=== PATIENT | male | born 1985 | race Caucasian/White ===

== ENCOUNTER 2016-11-03 19:58 | Emergency (ER) | payer BC, OTHER ==
[~2016-11-03] VITALS: Ht 177.8 cm; Wt 90.7 kg
[~2016-11-03 19:58] MED LIST: ALEVE220 MG; AMOXICILLIN500 M1 PO; AMOXICILLIN875 MG PO; ANTIVERT25 MG PO; BACTRIM DS TAB1 EACH PO; CORTISPORIN OTI10 M2 OTIC; ERYTHROMYCIN E3.5 G3 OPHTHALMIC; FLEXERIL PO; HYDROCODONE-APA1 TA1 PO; IBUPROFEN 600600 M1 PO; LISINOPRIL10 MG PO; MEDROLDOSEPACK PO; NAPROSYN500 MG PO; NICOTINE PATCH1 EAC1 TRANSDERM; NICOTINE TRANSD14 M1 TRANSDERM; NICOTINE TRANSDE7 MG TRANSDERM; NORCO 5-325 TA1 EACH PO; NORFLEX100 MG PO; PERCOCET 5-3251 EACH PO; PERCOCET 7.5-31 EACH PO; PREDNISONE 20 M20 MG PO; VISTARIL50 MG PO; WELLBUTRIN SR150 MG PO; ZOFRAN ODT4 MG PO
[2016-11-03 21:13] LABS: ABSOLUTE NEUTROPHILS 6.9 thou/uL (1.4-8.2); BASOPHILS 0.4 % (0.0-2.0); EOSINOPHILS 2.1 % (0.0-3.0); HEMATOCRIT 47.4 % (42.0-52.0); HEMOGLOBIN 16.4 gm/dL (14.0-18.0); LYMPHOCYTES 28.8 % (24.0-44.0); MCH 29.2 pg (26.0-34.0); MCHC 34.7 g/dL (28.0-37.0); MONOCYTES 5.1 % (1.0-8.0); PLATELET COUNT 204 thou/uL (150-400); POLYS 63.6 % (36.0-66.0); RBC 5.64 mil/uL (4.50-6.00); RDW 13.3 % (10.5-14.5); WBC 10.9 thou/uL (4.0-11.0)
[2016-11-03 21:16] LABS: ANION GAP 9 mmol/L (7-16); BUN 13 mg/dL (7-18); CALCIUM 8.9 mg/dL (8.5-10.1); CHLORIDE 105 mmol/L (98-107); CO2 24 mmol/L (21-32); CREATININE 0.9 mg/dL (0.6-1.3); GLUCOSE 91 mg/dL (70-99); POTASSIUM 3.9 mmol/L (3.5-5.1); SODIUM 138 mmol/L (136-145)
[2016-11-03 21:22] LABS: ALKALINE PHOSPHATASE 49 U/L (46-116); DIRECT BILIRUBIN < 0.1 mg/dL (<0.1-0.3); SGOT 35 U/L (15-37); SGPT 26 U/L (30-65); TOTAL BILIRUBIN 0.3 mg/dL (<0.1-1.0); TOTAL PROTEIN 7.1 g/dL (6.4-8.2)
[2016-11-03 21:24] LABS: MANUAL DIFF NO
[2016-11-03 21:25] LABS: URINE BILIRUBIN NEGATIVE (Negative); URINE BLOOD NEGATIVE (Negative); URINE COLOR YELLOW; URINE GLUCOSE-RANDOM* NEGATIVE (Negative); URINE KETONES TRACE (Negative); URINE LEUKOCYTES-REFLEX NEGATIVE (Negative); URINE PROTEIN (DIPSTICK) NEGATIVE (Negative); URINE SPECIFIC GRAVITY 1.025 (1.003-1.035); URINE UROBILINOGEN 0.2 E.U./dl (0.2-1.0)
[2016-11-03] MEDS ORDERED: NORCO 5-325 TA1 EACH PO (22:55)
== END 2016-11-03 23:18 | disposition home or self-care (01) ==
LOC: ER 19:58
PROVIDERS: Emergency Medicine
DX: R10.9 Unspecified abdominal pain (principal); I10 Essential (primary) hypertension; F17.210 Nicotine dependence, cigarettes, uncomplicated; Z90.49 Acquired absence of other specified parts of digestive tract; Z90.89 Acquired absence of other organs

== ENCOUNTER 2016-11-23 10:58 | Emergency (ER) | payer BC, OTHER ==
[~2016-11-23] VITALS: Ht 188 cm; Wt 102.1 kg
[2016-11-23] MEDS ORDERED: MOBIC7.5 MG PO (12:14)
== END 2016-11-23 12:51 | disposition home or self-care (01) ==
LOC: ER 10:58
DX: S93.401A Sprain of unspecified ligament of right ankle, initial encounter (principal); I10 Essential (primary) hypertension; F17.210 Nicotine dependence, cigarettes, uncomplicated; Z90.49 Acquired absence of other specified parts of digestive tract; W17.2XXA Fall into hole, initial encounter; Y93.89 Activity, other specified; Y92.89 Other specified places as the place of occurrence of the external cause; Y99.9 Unspecified external cause status

== ENCOUNTER 2017-01-31 22:01 | Emergency (ER) | payer BC, OTHER ==
[~2017-01-31] VITALS: Ht 188 cm; Wt 102.1 kg
[~2017-01-31 22:01] MED LIST changes: +MOBIC7.5 MG PO
[2017-01-31] MEDS ORDERED: ZOLOFT25 MG (22:12)
[2017-01-31] MEDS ORDERED: ASPIRIN EC325 M1 PO (22:12)
[2017-01-31 22:56] LABS: URINE BILIRUBIN NEGATIVE (Negative); URINE BLOOD NEGATIVE (Negative); URINE COLOR YELLOW; URINE GLUCOSE-RANDOM* NEGATIVE (Negative); URINE KETONES NEGATIVE (Negative); URINE LEUKOCYTES-REFLEX NEGATIVE (Negative); URINE PROTEIN (DIPSTICK) NEGATIVE (Negative); URINE SPECIFIC GRAVITY 1.025 (1.003-1.035); URINE UROBILINOGEN 0.2 E.U./dl (0.2-1.0)
[2017-01-31 23:57] LABS: ABSOLUTE NEUTROPHILS 8.6 thou/uL (1.4-8.2); BASOPHILS 0.6 % (0.0-2.0); EOSINOPHILS 2.7 % (0.0-3.0); HEMATOCRIT 46.7 % (42.0-52.0); HEMOGLOBIN 16.3 gm/dL (14.0-18.0); LYMPHOCYTES 27.7 % (24.0-44.0); MCH 29.3 pg (26.0-34.0); MCV 83.6 fL (80.0-100.0); MONOCYTES 6.6 % (1.0-8.0); PLATELET COUNT 211 thou/uL (150-400); POLYS 62.4 % (36.0-66.0); RBC 5.58 mil/uL (4.50-6.00); RDW 13.1 % (10.5-14.5); WBC 13.7 thou/uL (4.0-11.0)
[2017-02-01 00:04] LABS: MANUAL DIFF NO
[2017-02-01 00:05] LABS: CALCIUM 9.1 mg/dL (8.5-10.1); CREATININE 1.2 mg/dL (0.7-1.3); POTASSIUM 3.7 mmol/L (3.5-5.1)
[2017-02-01 00:10] LABS: ALBUMIN 3.8 g/dL (3.4-5.0); TOTAL BILIRUBIN 0.5 mg/dL (<0.1-1.0); TOTAL PROTEIN 7.2 g/dL (6.4-8.2)
[2017-02-01] MEDS ORDERED: BENTYL 20 MG TA20 M1 PO (00:36)
[2017-02-01] MEDS ORDERED: NAPROSYN500 MG PO (00:36)
== END 2017-02-01 01:03 | disposition home or self-care (01) ==
LOC: ER 22:01
PROVIDERS: Emergency Medicine
DX: M54.9 Dorsalgia, unspecified (principal); R30.0 Dysuria; I10 Essential (primary) hypertension; Z90.49 Acquired absence of other specified parts of digestive tract; Z98.890 Other specified postprocedural states; F17.210 Nicotine dependence, cigarettes, uncomplicated; F10.99 Alcohol use, unspecified with unspecified alcohol-induced disorder

== ENCOUNTER 2017-02-01 17:53 | Inpatient (IN) | payer BC, OTHER ==
[~2017-02-01] VITALS: Ht 188 cm; Wt 102.1 kg
--- NOTE | ~2017-02-01 | S ---
[facility] [place] [address] SURGICAL PATH RPT PROCEDURE Name: SUSANA BLEVINS Room #: 310-P [facility] IN M.R.#: [id number] Admission: 02/06/17 Date of : 87 Discharge: 02/06/17 Report #: [id number] Path Case #: [id number] PATHOLOGY REPORT COLLECTION DATE: 02/06/2017 RECEIVED DATE: 02/06/2017 SUBMITTING PHYS: Dr. Kashif Pollard OTHER PHYS: Dr. Alec Oh SPECIMEN(S) RECEIVED: A.Gastric bx * * * * * * * * * * * * FINAL DIAGNOSIS: "Gastric biopsy", biopsy: - Gastric mucosa with mild reactive changes, mild predominantly chronic inflammation and focal active gastritis. - Negative H. pylori immunohistochemical stain (block A1); control reacted appropriately. COMMENT: No dysplasia is seen. Clinical and endoscopic correlation is recommended. (CLW:cintia; 02/08/2017) PATHOLOGIST: Tara Alcaraz M.D. REPORT ELECTRONICALLY SIGNED BY: Tara Alcaraz M.D. DATE/TIME: 02/08/2017 13:46 * * * * * * * * * * * * GROSS PATHOLOGY: Received in formalin labeled "Susana Blevins, gastric BX," are 8 segments of dodge soft tissue measuring 2.3 x 0.2 x 0.2 cm in aggregate dimensions and ranging from 0.1 to 0.7 cm in maximum dimension. The specimen is submitted entirely in cassette A1. (MOOSE; 02/07/2017) CLINICAL HISTORY: ABD pain INITIAL CPT CODE(S): A; 61818, 65859 [facility] [address] [address] SURGICAL PATH RPT PROCEDURE Name: SUSANA BLEVINS Room #: 310-P DIS IN M.R.#: [id number] Admission: 02/06/17 Date of : 87 Discharge: 02/06/17 Report #: [id number] Path Case #: [id number] [address] [facility] , [place] [address] Technical services performed by [facility] at [address] [place] [address], [facility] [address] [address]. [facility] [place] [address] PHONE: [phone] DIRECTOR: Darion Murillo M.D. * * * END OF REPORT * * *
[~2017-02-01 17:53] MED LIST changes: +ASPIRIN EC325 M1 PO; +BENTYL 20 MG TA20 M1 PO; +ZOLOFT25 MG
[2017-02-01 17:54] VITALS: BP 154/95
[2017-02-01 18:28] LABS: URINE BILIRUBIN NEGATIVE (Negative); URINE BLOOD NEGATIVE (Negative); URINE COLOR YELLOW; URINE GLUCOSE-RANDOM* NEGATIVE (Negative); URINE KETONES NEGATIVE (Negative); URINE LEUKOCYTES-REFLEX NEGATIVE (Negative); URINE PROTEIN (DIPSTICK) NEGATIVE (Negative); URINE SPECIFIC GRAVITY 1.025 (1.003-1.035)
[2017-02-01 18:52] LABS: ABSOLUTE NEUTROPHILS 10.7 thou/uL (1.4-8.2); BASOPHILS 0.4 % (0.0-2.0); EOSINOPHILS 1.9 % (0.0-3.0); HEMATOCRIT 48.6 % (42.0-52.0); HEMOGLOBIN 16.9 gm/dL (14.0-18.0); LYMPHOCYTES 21.6 % (24.0-44.0); MCH 29.2 pg (26.0-34.0); MCHC 34.8 g/dL (28.0-37.0); MCV 83.8 fL (80.0-100.0); MONOCYTES 5.2 % (1.0-8.0); PLATELET COUNT 196 thou/uL (150-400); POLYS 70.9 % (36.0-66.0); RDW 13.4 % (10.5-14.5); WBC 15.1 thou/uL (4.0-11.0)
[2017-02-01 18:55] LABS: MANUAL DIFF NO
[2017-02-01 19:02] LABS: CALCIUM 9.4 mg/dL (8.5-10.1); CREATININE 1.1 mg/dL (0.7-1.3)
[2017-02-01 19:07] LABS: ALBUMIN 4.4 g/dL (3.4-5.0); TOTAL BILIRUBIN 0.5 mg/dL (<0.1-1.0); TOTAL PROTEIN 7.7 g/dL (6.4-8.2)
[2017-02-01 20:26] LABS: LARGE PLATELETS FEW
[2017-02-01 21:05] VITALS: BP 146/90
[2017-02-02 05:12] VITALS: BP 136/80
[2017-02-02 05:17] LABS: HEMATOCRIT 44.7 % (42.0-52.0); HEMOGLOBIN 15.2 gm/dL (14.0-18.0); MCH 28.5 pg (26.0-34.0); MCV 83.8 fL (80.0-100.0); RBC 5.33 mil/uL (4.50-6.00); RDW 13.6 % (10.5-14.5); WBC 13.1 thou/uL (4.0-11.0)
[2017-02-02 05:25] LABS: CALCIUM 8.4 mg/dL (8.5-10.1)
[2017-02-02 08:30] VITALS: BP 137/88
[2017-02-02 20:01] VITALS: BP 146/80
[2017-02-03 08:00] VITALS: BP 144/80
[2017-02-03 13:05] LABS: HEMATOCRIT 42.6 % (42.0-52.0); HEMOGLOBIN 14.9 gm/dL (14.0-18.0); MCH 29.2 pg (26.0-34.0); MCV 83.4 fL (80.0-100.0); RBC 5.11 mil/uL (4.50-6.00); RDW 13.3 % (10.5-14.5); WBC 10.7 thou/uL (4.0-11.0)
[2017-02-03 13:23] LABS: POTASSIUM 3.8 mmol/L (3.5-5.1)
[2017-02-03 13:29] LABS: CALCIUM 8.7 mg/dL (8.5-10.1)
[2017-02-03 19:47] VITALS: BP 154/92
[2017-02-04 04:18] VITALS: BP 124/77
[2017-02-04 04:53] LABS: HEMATOCRIT 45.4 % (42.0-52.0); HEMOGLOBIN 15.8 gm/dL (14.0-18.0); MCH 29.2 pg (26.0-34.0); MCHC 34.8 g/dL (28.0-37.0); MCV 83.8 fL (80.0-100.0); RBC 5.42 mil/uL (4.50-6.00); RDW 13.6 % (10.5-14.5)
[2017-02-04 05:07] LABS: CALCIUM 8.4 mg/dL (8.5-10.1)
[2017-02-04 07:48] VITALS: BP 136/74
[2017-02-04 15:47] VITALS: BP 145/88
[2017-02-04 20:20] VITALS: BP 155/109
[2017-02-05 04:30] VITALS: BP 139/78
[2017-02-05 07:05] VITALS: BP 138/90
[2017-02-05 16:38] VITALS: BP 149/93
[2017-02-05 20:00] VITALS: BP 130/70
[2017-02-06 04:00] VITALS: BP 112/71
[2017-02-06 06:33] LABS: ABSOLUTE NEUTROPHILS 5.7 thou/uL (1.4-8.2); BASOPHILS 0.4 % (0.0-2.0); EOSINOPHILS 3.7 % (0.0-3.0); HEMOGLOBIN 15.4 gm/dL (14.0-18.0); LYMPHOCYTES 31.4 % (24.0-44.0); MCH 29.3 pg (26.0-34.0); MCV 83.9 fL (80.0-100.0); MONOCYTES 5.2 % (1.0-8.0); PLATELET COUNT 183 thou/uL (150-400); POLYS 59.3 % (36.0-66.0); RBC 5.25 mil/uL (4.50-6.00); RDW 13.3 % (10.5-14.5); WBC 9.6 thou/uL (4.0-11.0)
[2017-02-06 06:45] LABS: MANUAL DIFF NO
[2017-02-06 06:54] LABS: ALBUMIN 3.6 g/dL (3.4-5.0); CALCIUM 9.2 mg/dL (8.5-10.1); CREATININE 1.1 mg/dL (0.7-1.3); MAGNESIUM 2.1 mg/dL (1.8-2.4); POTASSIUM 4.3 mmol/L (3.5-5.1); TOTAL BILIRUBIN 0.6 mg/dL (<0.1-1.0); TOTAL PROTEIN 6.9 g/dL (6.4-8.2)
[2017-02-06] MEDS ORDERED: PROTONIX40 M1 PO (17:11)
[2017-02-06] MEDS ORDERED: BENTYL 20 MG TA20 M1 PO (17:11)
[2017-02-06 17:50] VITALS: BP 145/95
[2017-02-06 18:06] VITALS: BP 145/95
== END 2017-02-06 19:00 | disposition home or self-care (01) | DRG 392 ==
LOC: ER 17:53 → 5S 19:22 → EROBS 19:22 → 3N 19:22 → 5S 20:28 → 3N 02-03 15:41
PROVIDERS: Emergency Medicine; Internal Medicine; Nurse Practitioner; Nurse Practitioner Family
PROC: 0DJD8ZZ Inspection of Lower Intestinal Tract, Via Natural or Artificial Opening Endoscopic (ICD-10-PCS; principal; 2017-02-06)
PROC: 0DB68ZX Excision of Stomach, Via Natural or Artificial Opening Endoscopic, Diagnostic (ICD-10-PCS; principal; 2017-02-06)
DX: A08.4 Viral intestinal infection, unspecified (principal); F32.9 Major depressive disorder, single episode, unspecified; D72.829 Elevated white blood cell count, unspecified; I10 Essential (primary) hypertension; F17.210 Nicotine dependence, cigarettes, uncomplicated; Z79.899 Other long term (current) drug therapy; Z90.49 Acquired absence of other specified parts of digestive tract; Z71.6 Tobacco abuse counseling
CPT/HCPCS: 10795; 62110; 62900; 70005

== ENCOUNTER 2017-03-22 19:26 | Emergency (ER) | payer BC, OTHER ==
[~2017-03-22] VITALS: Ht 188 cm; Wt 99.8 kg
[~2017-03-22 19:26] MED LIST changes: +PROTONIX40 M1 PO
[2017-03-22 19:48] LABS: URINE BILIRUBIN NEGATIVE (Negative); URINE BLOOD NEGATIVE (Negative); URINE COLOR YELLOW; URINE GLUCOSE-RANDOM* NEGATIVE (Negative); URINE KETONES NEGATIVE (Negative); URINE NITRITE NEGATIVE (Negative); URINE PROTEIN (DIPSTICK) NEGATIVE (Negative); URINE SPECIFIC GRAVITY 1.025 (1.003-1.035); URINE UROBILINOGEN 0.2 E.U./dl (0.2-1.0)
[2017-03-22 20:06] LABS: BASOPHILS 0.4 % (0.0-2.0); EOSINOPHILS 1.8 % (0.0-3.0); HEMATOCRIT 45.5 % (42.0-52.0); HEMOGLOBIN 16.1 gm/dL (14.0-18.0); LYMPHOCYTES 24.4 % (24.0-44.0); MCH 29.9 pg (26.0-34.0); MCHC 35.3 g/dL (28.0-37.0); MCV 84.6 fL (80.0-100.0); MONOCYTES 7.1 % (1.0-8.0); PLATELET COUNT 185 thou/uL (150-400); POLYS 66.3 % (36.0-66.0); RBC 5.37 mil/uL (4.50-6.00); RDW 13.3 % (10.5-14.5)
[2017-03-22 20:14] LABS: MANUAL DIFF NO
[2017-03-22 20:29] LABS: CALCIUM 8.8 mg/dL (8.5-10.1); POTASSIUM 3.5 mmol/L (3.5-5.1)
[2017-03-22 20:35] LABS: ALBUMIN 3.9 g/dL (3.4-5.0); TOTAL BILIRUBIN 0.5 mg/dL (<0.1-1.0); TOTAL PROTEIN 7.3 g/dL (6.4-8.2)
[2017-03-22] MEDS ORDERED: PROBIOTIC1 EAC1 PO (21:25)
[2017-03-22] MEDS ORDERED: PRILOSEC 20 MG20 MG PO (21:25)
[2017-03-22] MEDS ORDERED: HYDROCODONE-AP1 EAC6 PO (21:28)
== END 2017-03-22 21:39 | disposition home or self-care (01) ==
LOC: ER 19:26
PROVIDERS: Nurse Practitioner Family
DX: K29.70 Gastritis, unspecified, without bleeding (principal); I10 Essential (primary) hypertension; F17.210 Nicotine dependence, cigarettes, uncomplicated; F10.99 Alcohol use, unspecified with unspecified alcohol-induced disorder; Z90.49 Acquired absence of other specified parts of digestive tract; Z98.890 Other specified postprocedural states

== ENCOUNTER 2017-03-23 20:41 | Inpatient (IN) | payer BC, OTHER | END 2017-03-30 14:08 | disposition home or self-care (01) | DRG 694 | LOC: ER 20:41 → EROBS 21:23 → 4E 22:34 | PROC: BT1F1ZZ Fluoroscopy of Left Kidney, Ureter and Bladder using Low Osmolar Contrast (ICD-10-PCS; principal; 2017-03-23) | PROC: 0T778DZ Dilation of Left Ureter with Intraluminal Device, Via Natural or Artificial Opening Endoscopic (ICD-10-PCS; principal; 2017-03-23) | DX: N13.30 Unspecified hydronephrosis (principal); I10 Essential (primary) hypertension; D72.829 Elevated white blood cell count, unspecified; F17.210 Nicotine dependence, cigarettes, uncomplicated; Z90.49 Acquired absence of other specified parts of digestive tract; Z83.3 Family history of diabetes mellitus; Z82.49 Family history of ischemic heart disease and other diseases of the circulatory system ==

== ENCOUNTER 2017-04-13 08:15 | Inpatient (IN) | payer BC, OTHER ==
[~2017-04-13] VITALS: Ht 188 cm; Wt 98.9 kg
--- NOTE | ~2017-04-13 | CNG ---
[facility] [place] [address] CYTO-NONGYN REPORT PROCEDURE Name: SUSANA BLEVINS Room #: 302-P [facility] IN M.R.#: [id number] Admission: 04/13/17 Date of : 87 Discharge: 04/17/17 Report #: [id number] Path Case #: [id number] CYTOPATHOLOGY REPORT COLLECTION DATE: 04/16/2017 RECEIVED DATE: 04/17/2017 SUBMITTING PHYS: Dr. Isaak Amezquita OTHER PHYS: Dr. Мария Oh CLINICAL HISTORY: Left UPJ obstruction. SPECIMEN(S) RECEIVED: A.Urine, Left kidney * * * * * * * * * * * * FINAL DIAGNOSIS: A. Urine from Left kidney: - No malignant cells identified. - Reactive urothelial cells present with degenerative changes and some mild reactive atypia. PATHOLOGIST: Alley Mendoza M.D. REPORT ELECTRONICALLY SIGNED BY: Alley Mendoza M.D. DATE/TIME: 04/18/2017 14:43 * * * * * * * * * * * * GROSS PATHOLOGY: A. Urine, Left kidney: The specimen is submitted unfixed, labeled "Susana Blevins". Received by the Cytology Department is 20 mL of cloudy red fluid. One ThinPrep slide was prepared. (clt 04.17.2017) HOME MORTGAGE DISCLOSURE ACT SPECIALIST(S): DANIEL Dominguez([facility] INITIAL CPT CODE(S): A; 91276 Professional services performed by [facility] at [facility] [address], [place] [address] Technical services performed by [facility] at [address] [place] [address]., [address], [place] [address]. [facility] [address] [place] [address], [facility] [address] [place], [place] [address] [place] [address] [place] [address] CYTO-NONGYN REPORT PROCEDURE Name: SUSANA BLEVINS Room #: 302-P DIS IN M.R.#: [id number] Admission: 04/13/17 Date of : 87 Discharge: 04/17/17 Report #: [id number] Path Case #: [id number] PHONE: [phone] DIRECTOR: Darion Murillo M.D. * * * END OF REPORT * * *
--- NOTE | ~2017-04-13 | O ---
[facility] [place] [address] OPERATIVE REPORT Name: SUSANA QUINTERO Room #: 302-P ADM IN M.R.#: [id number] Admission: 04/13/17 Attend Phys: Мария Levine MD Discharge: Date of : 87 Report #: [id number] THIS REPORT FOR: //name// CC: Isaak Levine DATE OF SERVICE: 04/16/2017 PREOPERATIVE DIAGNOSIS: Left hydronephrosis. POSTOPERATIVE DIAGNOSES: Left hydronephrosis with proximal ureteral stricture, left UPJ obstruction. PROCEDURE: Cystoscopy, left retrograde pyelogram, left ureteroscopy with holmium laser incision and dilation of left ureteropelvic junction/left proximal ureteral stricture with placement of indwelling left ureteral stent. SURGEON: Isaak Amezquita MD ANESTHESIA: General. INDICATIONS: The patient is a very pleasant 31-year-old gentleman who was recently admitted with left flank pain. A stent was placed and his pain resolved completely. However, the last weekend he developed left flank pain and CT scan showed worsening hydronephrosis. He is admitted for further evaluation. Risks, benefits, complications have been discussed. Of note, urine cultures were negative. He has been treated empirically with IV antibiotics by the medical service. DESCRIPTION OF PROCEDURE: After obtaining informed consent, he was brought to the operating room. I had explained risk of failure of the procedure as well as complications requiring immediate or delayed open surgery as well as sepsis and bleeding. He understands risk for loss of the kidney, understands multiple additional procedures may be necessary. After entering the operative suite, he was prepped and general anesthetic was administered. He was prepped and draped in lithotomy position. IV antibiotics had been administered and a timeout was performed. Preliminary fluoroscopic images showed the stent to be in proper anatomical position. He was prepped and draped in lithotomy position. The 21-Sri Lankan ACMI cystoscope was introduced under direct vision. The anterior urethra was normal. Prostatic urethra was short and nonobstructive. Bladder was smooth walled. No intrinsic mucosal lesions. Trigone and ureters were normal in configuration and location. Stent was seen emanating from the left ureteral orifice. I placed a Glidewire in the left kidney alongside the stent and grasped the stent and removed it. I then placed a second wire and then a 12 x 14 35-cm access sheath in the left ureter. [facility] [address] [place] [address] OPERATIVE REPORT Name: SUSANA QUINTERO Room #: 302-P [facility] IN ..#: [id number] Admission: 04/13/17 Attend Phys: Мария Levine MD Discharge: Date of : 87 Report #: [id number] The digital ureteroscope was introduced into the ureter. Contrast was injected into the ureter, which showed what appeared to be a narrowing right at the left UPJ with dilation above this more consistent with a left UPJ obstruction. In the ureter, there was this whitish fibrotic tissue, right at the UPJ. I had obtained contrast urine from the upper tract for cytology. There was some amorphous tissue. I attempted to biopsy this, but the tissue disintegrated with any sort of motion and manipulation. I used 200 micron laser fiber to gently incise the stricture. I opened it up with a balloon dilator. There was no significant bleeding. The contrast then appeared to drain much better from the left kidney. Having opened the stricture, I then backloaded the wire through the cystoscope and placed a 6-Sri Lankan x 28 cm contour stent with the proximal curl in the left kidney and the distal curl was in the bladder. I paid careful attention to avoid creating too much trauma such that this procedure is not successful, he would potentially require ureteropelvic junction repair formally. The bladder was drained. Fluoroscopic images showed proper positioning of the stent. He was then transferred to the recovery room where he arrived in stable condition. <ELECTRONICALLY SIGNED> By: Isaak Amezquita MD 04/17/17 0805 1440 1632 Isaak Amezquita MD /nt
--- NOTE | ~2017-04-13 | H ---
[facility] [place] [address] HISTORY AND PHYSICAL Name: SUSANA QUINTERO Room #: 302-P [place] IN M.R.#: [id number] Admission: 04/13/17 Attend Phys: Мария Levine MD Discharge: Date of : 87 Report #: [id number] THIS REPORT FOR: //name// CC: Isaak Levine DATE OF SERVICE: 04/13/2017 CHIEF COMPLAINT: Left flank pain. HISTORY OF PRESENT ILLNESS: The patient is a 31-year-old man who had left ureteral stent for ureteral stricture a couple of weeks ago. The patient states that he was doing well until this morning, when he woke up with the increased left flank pain, fevers, chills, nausea and vomiting. He presented to the Emergency Room. He was found to have leukocytosis, with white count of 17,000. He was afebrile. CT scan of the abdomen showed increased left-sided hydronephrosis. Urinalysis is consistent with UTI. The patient does not have other complaints. PAST MEDICAL HISTORY: 1. Hypertension. 2. Anxiety and depression. 3. Recent left ureteral stent placement for ureteral stricture. HOME MEDICATIONS: Lisinopril 10 mg a day, omeprazole 20 mg a day, Zoloft 25 mg a day and lactobacillus once a day. FAMILY HISTORY: Reviewed and not pertinent to the patient's current condition. SOCIAL HISTORY: The patient smokes cigarettes. He reports social alcohol intake. REVIEW OF SYSTEMS: As above in HPI section, all others negative. PHYSICAL EXAMINATION: GENERAL: The patient is healthy looking young man who is in no apparent distress. VITAL SIGNS: Blood pressure is 142/87, heart rate is 72, respiration is 18 and temperature is 97.9. HEENT: Pupils are equal. Eye movements are normal. The patient has anicteric sclerae. NECK: Supple. He has no thyromegaly. JVD is not appreciated. RESPIRATORY: Chest moves symmetrically with breathing. Respiratory sounds are normal. CARDIOVASCULAR: The patient has regular rhythm and rate. He has no murmurs, gallops or rubs. [facility] [address] [place] [address] HISTORY AND PHYSICAL Name: SUSANA QUINTERO Room #: 302-P [place] IN [facility].#: [id number] Admission: 04/13/17 Attend Phys: Мария Levine MD Discharge: Date of : 87 Report #: [id number] GASTROINTESTINAL: Abdomen is soft, nondistended and nontender. The patient has left flank tenderness. Hepatomegaly or splenomegaly is not palpated. MUSCULOSKELETAL: The patient has no joint deformities. He has no edema, cyanosis or clubbing. NEUROLOGIC: The patient is alert and oriented x 3. His examination is grossly nonfocal. SKIN: Reveals no skin lesions. The patient has . LABORATORY DATA: Comprehensive metabolic profile is essentially normal. On CBC, white count is 17,000, with neutrophils 83%. Rest of the CBC is normal. Urinalysis shows bacteria. White count between 16 and 25, as well as leukocyte esterase. CT scan shows increased left-sided hydronephrosis. ASSESSMENT AND PLAN: 1. Left-sided hydronephrosis, status post left ureteral stent placement about 2 weeks ago. Urologist is consulted. Input is very much appreciated. 2. Pain, nausea and vomiting due to above. Continue p.r.n. medications. 3. Urinary tract infection, suspected pyelonephritis. The patient is already started on Rocephin. Urine and blood cultures submitted. 4. Hypertension. Acceptable control. Continue current treatment. By: 1502 1527 Мария Levine MD /nt
[~2017-04-13 08:15] MED LIST changes: +HYDROCODONE-AP1 EAC6 PO; +PRILOSEC 20 MG20 MG PO; +PROBIOTIC1 EAC1 PO; +TRANSDERM-SCO1 PATC1 TRANSDERM; -ZOLOFT25 MG; +ZOLOFT25 MG PO
[2017-04-13 08:19] VITALS: BP 146/90
[2017-04-13 08:48] LABS: HEMATOCRIT 46.3 % (42.0-52.0); MCH 29.3 pg (26.0-34.0); MCHC 34.5 g/dL (28.0-37.0); PLATELET COUNT 202 thou/uL (150-400); RBC 5.45 mil/uL (4.50-6.00); RDW 13.3 % (10.5-14.5); WBC 17.3 thou/uL (4.0-11.0)
[2017-04-13 08:52] LABS: URINE BILIRUBIN NEGATIVE (Negative); URINE BLOOD 3+ (Negative); URINE COLOR YELLOW; URINE GLUCOSE-RANDOM* NEGATIVE (Negative); URINE KETONES NEGATIVE (Negative); URINE PROTEIN (DIPSTICK) 2+ (Negative); URINE SPECIFIC GRAVITY >= 1.030 (1.003-1.035); URINE UROBILINOGEN 0.2 E.U./dl (0.2-1.0)
[2017-04-13 08:53] LABS: URINE LEUKOCYTES-REFLEX 2+ (Negative)
[2017-04-13 08:53] LABS: CALCIUM 9.8 mg/dL (8.5-10.1); CREATININE 1.2 mg/dL (0.7-1.3); POTASSIUM 3.7 mmol/L (3.5-5.1)
[2017-04-13 08:54] LABS: MANUAL DIFF YES
[2017-04-13 08:59] LABS: ALBUMIN 4.2 g/dL (3.4-5.0); TOTAL BILIRUBIN 0.7 mg/dL (<0.1-1.0); TOTAL PROTEIN 7.6 g/dL (6.4-8.2)
[2017-04-13 09:05] LABS: CASTS None Seen /LPF (None Seen); CRYSTALS None Seen /LPF (None Seen); SQUAMOUS None Seen /LPF (0-3)
[2017-04-13 09:16] LABS: ABSOLUTE NEUTROPHILS 14.4 thou/uL (1.4-8.2); ANISOCYTOSIS 1+; TOTAL CELL COUNT 100
[2017-04-13 10:07] VITALS: BP 139/84
[2017-04-13 10:20] VITALS: BP 120/86
[2017-04-13 10:30] VITALS: BP 142/87
[2017-04-13 16:00] VITALS: BP 130/83
[2017-04-13 19:40] VITALS: BP 140/83
[2017-04-14 03:55] VITALS: BP 124/91
[2017-04-14 04:49] LABS: ABSOLUTE NEUTROPHILS 6.1 thou/uL (1.4-8.2); BASOPHILS 0.4 % (0.0-2.0); EOSINOPHILS 3.3 % (0.0-3.0); HEMATOCRIT 42.7 % (42.0-52.0); HEMOGLOBIN 14.6 gm/dL (14.0-18.0); LYMPHOCYTES 30.1 % (24.0-44.0); MCH 29.7 pg (26.0-34.0); MCHC 34.2 g/dL (28.0-37.0); MCV 86.8 fL (80.0-100.0); PLATELET COUNT 194 thou/uL (150-400); POLYS 59.2 % (36.0-66.0); RBC 4.92 mil/uL (4.50-6.00); RDW 13.5 % (10.5-14.5); WBC 10.3 thou/uL (4.0-11.0)
[2017-04-14 04:57] LABS: CALCIUM 8.2 mg/dL (8.5-10.1); POTASSIUM 3.8 mmol/L (3.5-5.1)
[2017-04-14 05:57] LABS: MANUAL DIFF NO
[2017-04-14 08:00] VITALS: BP 131/87
[2017-04-14 08:09] VITALS: BP 131/87
[2017-04-14 16:00] VITALS: BP 137/91
[2017-04-14 19:08] VITALS: BP 148/83
[2017-04-15 03:30] VITALS: BP 117/71
[2017-04-15 06:54] LABS: CALCIUM 8.9 mg/dL (8.5-10.1)
[2017-04-15 07:07] VITALS: BP 139/94
[2017-04-15 15:44] VITALS: BP 145/79
[2017-04-15 19:18] VITALS: BP 143/86
[2017-04-16] VITALS (8 sets, daily range): BP systolic 119–147; BP diastolic 71–95
[2017-04-17 03:05] VITALS: BP 118/63
[2017-04-17 08:05] VITALS: BP 149/81
[2017-04-17] MEDS ORDERED: CEFPODOXIME PR200 M1 PO (13:41)
[2017-04-17] MEDS ORDERED: OXYCONTIN15 MG PO (13:41)
[2017-04-17] MEDS ORDERED: DILAUDID 2 MG TA2 MG PO (13:41)
[2017-04-17 13:48] VITALS: BP 149/81
== END 2017-04-17 17:36 | disposition home or self-care (01) | DRG 694 ==
LOC: ER 08:15 → 3N 10:02 → EROBS 10:02 → 3N 10:25
PROVIDERS: Emergency Medicine; Internal Medicine Endocrinology, Diabetes & Metabolism
PROC: 0T778DZ Dilation of Left Ureter with Intraluminal Device, Via Natural or Artificial Opening Endoscopic (ICD-10-PCS; principal; 2017-04-16)
PROC: BT1F1ZZ Fluoroscopy of Left Kidney, Ureter and Bladder using Low Osmolar Contrast (ICD-10-PCS; principal; 2017-04-16)
DX: N13.1 Hydronephrosis with ureteral stricture, not elsewhere classified (principal); N12 Tubulo-interstitial nephritis, not specified as acute or chronic; I10 Essential (primary) hypertension; F32.9 Major depressive disorder, single episode, unspecified; F17.210 Nicotine dependence, cigarettes, uncomplicated; F41.9 Anxiety disorder, unspecified; N39.0 Urinary tract infection, site not specified; D72.829 Elevated white blood cell count, unspecified; Z90.49 Acquired absence of other specified parts of digestive tract; Z79.899 Other long term (current) drug therapy; Z83.3 Family history of diabetes mellitus; Z82.49 Family history of ischemic heart disease and other diseases of the circulatory system
CPT/HCPCS: 10096; 50010; 50101; 51179; 51213; 51511; 51620; 51767; 53331; 56815; 62110; 62900; 70005

== ENCOUNTER 2017-08-27 17:09 | Emergency (ER) | payer OTHER ==
[~2017-08-27] VITALS: Ht 157.5 cm; Wt 99.8 kg
[~2017-08-27 17:09] MED LIST changes: +CEFPODOXIME PR200 M1 PO; +COMPAZINE10 MG PO; +DILAUDID 2 MG TA2 MG PO; +OXYCONTIN15 MG PO
[2017-08-27] MEDS ORDERED: VISTARIL 25 MG25 M1 (18:49)
[2017-08-27] MEDS ORDERED: HYDROCODONE-AP1 EAC6 PO (19:04)
[2017-08-27] MEDS ORDERED: CYCLOBENZAPRINE5 MG PO (19:04)
[2017-08-27] MEDS ORDERED: PREDNISONE 20 M20 M1 PO (19:04)
[2017-08-27 19:19] VITALS: BP 154/85
== END 2017-08-27 19:26 | disposition home or self-care (01) ==
LOC: ER 17:09
DX: M54.5 Low back pain (principal); I10 Essential (primary) hypertension; F17.210 Nicotine dependence, cigarettes, uncomplicated; Z90.49 Acquired absence of other specified parts of digestive tract; Z88.8 Allergy status to other drugs, medicaments and biological substances

== ENCOUNTER 2017-09-09 18:01 | Inpatient (IN) | payer OTHER ==
[~2017-09-09] VITALS: Ht 188 cm; Wt 103.9 kg
--- NOTE | ~2017-09-09 | O ---
[facility] [place] [address] OPERATIVE REPORT Name: SUSANA QUINTERO Room #: 417-I [place] IN M.R.#: [id number] Admission: 09/09/17 Attend Phys: Joaquin Nunn, Discharge: 09/12/17 Date of : 87 Report #: [id number] THIS REPORT FOR: //name// CC: Isaak Nunn PREOPERATIVE DIAGNOSES: Left hydronephrosis, left flank pain, left ureteropelvic junction obstruction. POSTOPERATIVE DIAGNOSES: Left hydronephrosis, left flank pain, left ureteropelvic junction obstruction. PROCEDURE: Cystoscopy, left retrograde pyelogram, left ureteral stent exchange. SURGEON: Isaak Amezquita M.D. ANESTHESIA: General. INDICATIONS: The patient is a very pleasant 31-year-old gentleman with a left UPJ obstruction. A stent was placed last fall and he did not return for followup despite our efforts to contact him. He became ill with left flank pain and CT was consistent with a stent that was not draining and with left hydronephrosis. He is admitted for retrograde pyelogram and stent exchange. I have talked to him about definitive care and hopefully he will follow through with it, although I have discussed this with him in the past and he did not follow through. Risks, benefits, complications were discussed. He understands complications could occur, which may not have been foreseen were discussed. Risks of deep venous thrombosis, pulmonary embolism, heart attack, stroke and have been discussed. Risks of sepsis and bleeding and inability to retrieve the stent were all discussed. We also discussed measures that would need to be taken if I cannot retrieve the stent due to encrustation. DESCRIPTION OF PROCEDURE: After obtaining informed consent, he was brought to the operating room, general anesthetic was administered. He was prepped and draped in lithotomy position by the operating room personnel under Anesthesia supervision. Preliminary fluoroscopic images showed a stent to be well positioned on the left side. A timeout was performed. IV antibiotics administered. A 21-Yoruba ACMI cystoscope was introduced under direct vision. The anterior urethra was normal. Prostatic urethra was short and nonobstructive. Upon entering the bladder, there was a mild amount of edema around the left ureteral orifice. The stent was seen emanating from the left ureteral orifice. I placed a 0.35 ZIPwire into the left kidney alongside the stent. I grasped the stent and removed it. I then placed an open-ended ureteral catheter over the wire and removed the wire. I injected contrast, which confirmed a box pelvis with narrowing at the UPJ. The left kidney really did not drain. The remainder of the ureter did. I then advanced the wire back into the kidney and placed a 7-Yoruba x 28 cm Contour stent. At that point, [facility] [address] [place] [address] OPERATIVE REPORT Name: SUSANA QUINTERO Room #: 417-I DIS IN M.R.#: [id number] Admission: 09/09/17 Attend Phys: Joaquin Nunn DO Discharge: 09/12/17 Date of : 87 Report #: [id number] there was excellent drainage of the kidney and decompression. The bladder was drained and he was transferred to the recovery room where he arrived in stable condition. Findings were shared with his family. <ELECTRONICALLY SIGNED> By: Isaak Amezquita MD 10/15/17 1019 1300 1428 Isaak Amezquita MD /nt
[~2017-09-09 18:01] MED LIST changes: +CYCLOBENZAPRINE5 MG PO; +PREDNISONE 20 M20 M1 PO; +VISTARIL 25 MG25 M1
[2017-09-09 18:07] VITALS: BP 176/83
[2017-09-09 18:27] LABS: URINE BILIRUBIN NEGATIVE (Negative); URINE BLOOD 3+ (Negative); URINE CLARITY CLEAR; URINE COLOR YELLOW; URINE GLUCOSE-RANDOM* NEGATIVE (Negative); URINE KETONES NEGATIVE (Negative); URINE LEUKOCYTES NEGATIVE (Negative); URINE NITRITE NEGATIVE (Negative); URINE PROTEIN (DIPSTICK) NEGATIVE (Negative); URINE SPECIFIC GRAVITY <= 1.005 (1.005-1.035); URINE UROBILINOGEN 0.2 E.U./dl (0.2-1.0)
[2017-09-09 18:35] LABS: SQUAMOUS None Seen /LPF (0-3); URINE WBC None Seen /HPF (0-5)
[2017-09-09 18:36] LABS: BACTERIA None Seen /HPF (None Seen); CASTS None Seen /LPF (None Seen); CRYSTALS None Seen /LPF (None Seen); URINE RBC 3-10 Few /HPF (0-2)
[2017-09-09 18:57] LABS: ABSOLUTE NEUTROPHILS 9.9 thou/uL (1.4-8.2); BASOPHILS 0.5 % (0.0-2.0); EOSINOPHILS 2.3 % (0.0-3.0); HEMATOCRIT 49.9 % (42.0-52.0); HEMOGLOBIN 17.1 gm/dL (14.0-18.0); LYMPHOCYTES 20.8 % (24.0-44.0); MCH 29.2 pg (26.0-34.0); MCHC 34.2 g/dL (28.0-37.0); MCV 85.3 fL (80.0-100.0); MONOCYTES 3.7 % (1.0-8.0); PLATELET COUNT 216 thou/uL (150-400); POLYS 72.7 % (36.0-66.0); RBC 5.86 mil/uL (4.50-6.00); RDW 13.8 % (10.5-14.5); WBC 13.6 thou/uL (4.0-11.0)
[2017-09-09 19:01] LABS: CALCIUM 9.2 mg/dL (8.5-10.1); CREATININE 1.1 mg/dL (0.7-1.3); POTASSIUM 3.8 mmol/L (3.5-5.1)
[2017-09-09 19:07] LABS: ALBUMIN 4.2 g/dL (3.4-5.0); DIRECT BILIRUBIN 0.1 mg/dL (<0.1-0.3); TOTAL BILIRUBIN 0.4 mg/dL (<0.1-1.0); TOTAL PROTEIN 7.3 g/dL (6.4-8.2)
[2017-09-09 21:00] VITALS: BP 141/93
[2017-09-09 21:11] VITALS: BP 148/93
[2017-09-10 04:10] VITALS: BP 111/65
[2017-09-10 06:33] LABS: HEMATOCRIT 45.2 % (42.0-52.0); HEMOGLOBIN 15.7 gm/dL (14.0-18.0); MCH 29.5 pg (26.0-34.0); MCHC 34.8 g/dL (28.0-37.0); MCV 84.7 fL (80.0-100.0); RBC 5.33 mil/uL (4.50-6.00); RDW 13.4 % (10.5-14.5); WBC 9.3 thou/uL (4.0-11.0)
[2017-09-10 07:12] VITALS: BP 121/70
[2017-09-10 07:20] LABS: CALCIUM 8.6 mg/dL (8.5-10.1); CREATININE 0.9 mg/dL (0.7-1.3); POTASSIUM 4.2 mmol/L (3.5-5.1)
[2017-09-10 16:41] VITALS: BP 133/72
[2017-09-10 19:33] VITALS: BP 123/79
[2017-09-11 03:59] VITALS: BP 112/68
[2017-09-11 04:02] VITALS: BP 136/78
[2017-09-11 05:18] LABS: BASOPHILS 0.3 % (0.0-2.0); EOSINOPHILS 2.9 % (0.0-3.0); HEMATOCRIT 45.7 % (42.0-52.0); HEMOGLOBIN 15.8 gm/dL (14.0-18.0); LYMPHOCYTES 31.7 % (24.0-44.0); MCH 29.3 pg (26.0-34.0); MCHC 34.5 g/dL (28.0-37.0); MCV 84.9 fL (80.0-100.0); MONOCYTES 5.3 % (1.0-8.0); PLATELET COUNT 188 thou/uL (150-400); POLYS 59.8 % (36.0-66.0); RBC 5.38 mil/uL (4.50-6.00); RDW 13.7 % (10.5-14.5); WBC 10.1 thou/uL (4.0-11.0)
[2017-09-11 05:32] LABS: CALCIUM 8.5 mg/dL (8.5-10.1); CREATININE 0.9 mg/dL (0.7-1.3); POTASSIUM 4.1 mmol/L (3.5-5.1)
[2017-09-11 07:05] VITALS: BP 119/66
[2017-09-11 18:02] VITALS: BP 154/96
[2017-09-11 19:21] VITALS: BP 148/62
[2017-09-12 03:48] VITALS: BP 109/53
[2017-09-12 07:15] VITALS: BP 123/59
[2017-09-12] MEDS ORDERED: HYDROCODONE-AP1 EAC6 PO (08:27)
[2017-09-12 10:02] VITALS: BP 12/59
== END 2017-09-12 10:46 | disposition home or self-care (01) | DRG 698 ==
LOC: ER 18:01 → EROBS 20:10 → 4E 20:10
PROVIDERS: Emergency Medicine; Family Medicine; Nurse Practitioner Family
PROC: 0TP98DZ Removal of Intraluminal Device from Ureter, Via Natural or Artificial Opening Endoscopic (ICD-10-PCS; principal; 2017-09-11)
PROC: BT1F1ZZ Fluoroscopy of Left Kidney, Ureter and Bladder using Low Osmolar Contrast (ICD-10-PCS; principal; 2017-09-11)
PROC: 0T778DZ Dilation of Left Ureter with Intraluminal Device, Via Natural or Artificial Opening Endoscopic (ICD-10-PCS; principal; 2017-09-11)
DX: T83.113A Breakdown (mechanical) of other urinary stents, initial encounter (principal); A41.9 Sepsis, unspecified organism; N13.0 Hydronephrosis with ureteropelvic junction obstruction; Y83.8 Other surgical procedures as the cause of abnormal reaction of the patient, or of later complication, without mention of misadventure at the time of the procedure; I10 Essential (primary) hypertension; F32.9 Major depressive disorder, single episode, unspecified; F17.210 Nicotine dependence, cigarettes, uncomplicated; F41.9 Anxiety disorder, unspecified; Z82.49 Family history of ischemic heart disease and other diseases of the circulatory system; K21.9 Gastro-esophageal reflux disease without esophagitis; F15.10 Other stimulant abuse, uncomplicated; Y92.89 Other specified places as the place of occurrence of the external cause; Z90.49 Acquired absence of other specified parts of digestive tract; Z79.899 Other long term (current) drug therapy; Z88.8 Allergy status to other drugs, medicaments and biological substances; Z83.3 Family history of diabetes mellitus; Z28.21 Immunization not carried out because of patient refusal
CPT/HCPCS: 10084; 50010; 50101; 50751; 51620; 51767; 56815; 62110; 62900; 70005

== ENCOUNTER 2017-10-30 13:13 | Emergency (ER) | payer OTHER ==
[~2017-10-30] VITALS: Ht 190.5 cm; Wt 102.1 kg
[2017-10-30] MEDS ORDERED: HYDROCODONE-AP1 EAC6 PO (13:35)
[2017-10-30] MEDS ORDERED: KEFLEX500 M1 PO (13:35)
== END 2017-10-30 13:50 | disposition home or self-care (01) ==
LOC: ER 13:13
DX: S61.432A Puncture wound without foreign body of left hand, initial encounter (principal); I10 Essential (primary) hypertension; F17.210 Nicotine dependence, cigarettes, uncomplicated; Z90.89 Acquired absence of other organs; Z90.49 Acquired absence of other specified parts of digestive tract; F32.9 Major depressive disorder, single episode, unspecified; Z88.8 Allergy status to other drugs, medicaments and biological substances; Z88.4 Allergy status to anesthetic agent; W22.8XXA Striking against or struck by other objects, initial encounter; Y93.89 Activity, other specified; Y92.89 Other specified places as the place of occurrence of the external cause; Y99.8 Other external cause status

== ENCOUNTER 2017-12-10 22:00 | Emergency (ER) | payer OTHER ==
[~2017-12-10] VITALS: Ht 190.5 cm; Wt 99.8 kg
[~2017-12-10 22:00] MED LIST changes: +KEFLEX500 M1 PO
[2017-12-10] MEDS ORDERED: NAPROSYN500 MG PO (22:44)
== END 2017-12-10 22:57 | disposition home or self-care (01) ==
LOC: ER 22:00
DX: S93.401A Sprain of unspecified ligament of right ankle, initial encounter (principal); X58.XXXA Exposure to other specified factors, initial encounter; Y93.89 Activity, other specified; Y92.89 Other specified places as the place of occurrence of the external cause; Y99.8 Other external cause status; I10 Essential (primary) hypertension; F32.9 Major depressive disorder, single episode, unspecified; Z90.49 Acquired absence of other specified parts of digestive tract; F17.210 Nicotine dependence, cigarettes, uncomplicated; Z88.8 Allergy status to other drugs, medicaments and biological substances

== ENCOUNTER 2017-12-30 21:26 | Emergency (ER) | payer OTHER ==
[~2017-12-30] VITALS: Ht 190.5 cm; Wt 99.8 kg
[2017-12-30 21:45] LABS: URINE CLARITY CLEAR; URINE COLOR ORANGE
[2017-12-30] MEDS ORDERED: SERTRALINE HCL50 MG PO (21:58)
[2017-12-30 21:59] LABS: SSA (PROTEIN CONFIRMATORY) NEGATIVE (Negative)
[2017-12-30 22:00] LABS: ICTOTEST (BILI CONFIRMATORY) Negative (Negative); URINE REDUCING SUBSTANCE 0 %
[2017-12-30 22:01] LABS: CASTS None Seen /LPF (None Seen); MUCUS None Seen strn/LPF (None Seen); SQUAMOUS None Seen /LPF (0-3); URINE WBC-REFLEX None Seen /HPF (0-5)
[2017-12-30 22:02] LABS: BACTERIA-REFLEX None Seen /HPF (None Seen); CRYSTALS None Seen /LPF (None Seen); URINE RBC 3-10 Few /HPF (0-2)
[2017-12-30 22:16] LABS: ABSOLUTE NEUTROPHILS 7.2 thou/uL (1.4-8.2); BASOPHILS 0.3 % (0.0-2.0); EOSINOPHILS 2.7 % (0.0-3.0); HEMATOCRIT 46.4 % (42.0-52.0); HEMOGLOBIN 16.1 gm/dL (14.0-18.0); LYMPHOCYTES 27.1 % (24.0-44.0); MCH 29.6 pg (26.0-34.0); MCHC 34.8 g/dL (28.0-37.0); MCV 85.1 fL (80.0-100.0); MONOCYTES 4.7 % (1.0-8.0); PLATELET COUNT 183 thou/uL (150-400); POLYS 65.2 % (36.0-66.0); RBC 5.45 mil/uL (4.50-6.00); RDW 12.9 % (10.5-14.5)
[2017-12-30 22:22] LABS: CALCIUM 9.1 mg/dL (8.5-10.1); CREATININE 1.1 mg/dL (0.7-1.3); POTASSIUM 3.6 mmol/L (3.5-5.1)
== END 2017-12-30 23:59 | disposition home or self-care (01) ==
LOC: ER 21:26
PROVIDERS: Emergency Medicine
DX: T83.84XA Pain due to genitourinary prosthetic devices, implants and grafts, initial encounter (principal); G89.18 Other acute postprocedural pain; R31.9 Hematuria, unspecified; R50.9 Fever, unspecified; I10 Essential (primary) hypertension; F32.9 Major depressive disorder, single episode, unspecified; Z90.49 Acquired absence of other specified parts of digestive tract; F17.210 Nicotine dependence, cigarettes, uncomplicated; Z88.8 Allergy status to other drugs, medicaments and biological substances

== ENCOUNTER 2018-01-10 13:59 | Emergency (ER) | payer OTHER ==
[~2018-01-10] VITALS: Ht 190.5 cm; Wt 99.8 kg
[~2018-01-10 13:59] MED LIST changes: +SERTRALINE HCL50 MG PO
[2018-01-10 14:23] LABS: URINE BILIRUBIN NEGATIVE (Negative); URINE BLOOD 3+ (Negative); URINE COLOR YELLOW; URINE GLUCOSE-RANDOM* NEGATIVE (Negative); URINE KETONES NEGATIVE (Negative); URINE LEUKOCYTES TRACE (Negative); URINE NITRITE NEGATIVE (Negative); URINE PROTEIN (DIPSTICK) 2+ (Negative); URINE SPECIFIC GRAVITY >= 1.030 (1.005-1.035); URINE UROBILINOGEN 0.2 E.U./dl (0.2-1.0)
[2018-01-10 14:26] LABS: URINE CLARITY HAZY
[2018-01-10 14:32] LABS: CASTS None Seen /LPF (None Seen); CRYSTALS None Seen /LPF (None Seen); SQUAMOUS None Seen /LPF (0-3); URINE RBC >20 Many /HPF (0-2); URINE WBC 0-5 Rare /HPF (0-5)
[2018-01-10 14:46] LABS: BASOPHILS 0.3 % (0.0-2.0); EOSINOPHILS 3.4 % (0.0-3.0); HEMOGLOBIN 16.9 gm/dL (14.0-18.0); LYMPHOCYTES 19.8 % (24.0-44.0); MCH 30.3 pg (26.0-34.0); MCHC 35.3 g/dL (28.0-37.0); MCV 85.8 fL (80.0-100.0); MONOCYTES 5.2 % (1.0-8.0); PLATELET COUNT 192 thou/uL (150-400); POLYS 71.3 % (36.0-66.0); RBC 5.59 mil/uL (4.50-6.00); WBC 9.8 thou/uL (4.0-11.0)
[2018-01-10 14:47] LABS: CALCIUM 8.9 mg/dL (8.5-10.1)
[2018-01-10 14:52] LABS: TOTAL BILIRUBIN 0.5 mg/dL (<0.1-1.0); TOTAL PROTEIN 7.3 g/dL (6.4-8.2)
[2018-01-10] MEDS ORDERED: KEFLEX500 M1 PO (15:39)
[2018-01-10] MEDS ORDERED: HYDROCODONE-AP1 EAC6 PO (15:39)
[2018-01-10] MEDS ORDERED: NAPROSYN500 MG PO (15:39)
== END 2018-01-10 16:26 | disposition home or self-care (01) ==
LOC: ER 13:59
PROVIDERS: Physician Assistant
DX: R10.9 Unspecified abdominal pain (principal); N39.0 Urinary tract infection, site not specified; R11.0 Nausea; I10 Essential (primary) hypertension; Z90.49 Acquired absence of other specified parts of digestive tract; F17.210 Nicotine dependence, cigarettes, uncomplicated; Z88.8 Allergy status to other drugs, medicaments and biological substances

== ENCOUNTER → 2018-11-06 | Outpatient (CLI) | payer OTHER | LOC: NUC 13:05 | DX: Q62.11 Congenital occlusion of ureteropelvic junction (principal) ==

== ENCOUNTER 2018-12-08 14:17 | Emergency (ER) | payer OTHER ==
[~2018-12-08] VITALS: Ht 190.5 cm; Wt 99.8 kg
[2018-12-08 14:44] LABS: ABSOLUTE NEUTROPHILS 10.8 thou/uL (1.4-8.2); BASOPHILS 0.6 % (0.0-2.0); EOSINOPHILS 1.9 % (0.0-3.0); HEMATOCRIT 47.9 % (42.0-52.0); HEMOGLOBIN 16.7 gm/dL (14.0-18.0); LYMPHOCYTES 14.6 % (24.0-44.0); MCH 29.6 pg (26.0-34.0); MCHC 34.9 g/dL (28.0-37.0); MCV 84.7 fL (80.0-100.0); MONOCYTES 4.4 % (1.0-8.0); PLATELET COUNT 198 thou/uL (150-400); POLYS 78.5 % (36.0-66.0); RBC 5.66 mil/uL (4.50-6.00); RDW 13.7 % (10.5-14.5); WBC 13.8 thou/uL (4.0-11.0)
[2018-12-08 14:55] LABS: ANION GAP 14 mmol/L (7-16); BUN 22 mg/dL (7-18); CALCIUM 9.4 mg/dL (8.5-10.1); CHLORIDE 103 mmol/L (98-107); CO2 21 mmol/L (21-32); GLUCOSE 113 mg/dL (74-106); POTASSIUM 3.9 mmol/L (3.5-5.1); SODIUM 138 mmol/L (136-145)
[2018-12-08 15:03] LABS: TROPONIN-I <0.06 ng/mL (<0.06)
[2018-12-08] MEDS ORDERED: TRAMADOL 50 MG50 MG PO (16:58)
[2018-12-08] MEDS ORDERED: NAPROSYN500 MG PO (16:58)
[2018-12-08 17:06] VITALS: BP 127/64
--- NOTE | 2018-12-09 09:13 | EKG ---
[address] [address] ELECTROCARDIOGRAM REPORT Name: SUSANA QUINTERO Room #: DEP [facility]#: [id number] ������������������ Admission: 12/08/18 ������������������ Attend Phys: Discharge: 12/08/18 ������������������ Date of : 87 Report #: [id number] ����������������������������������������������������������������� [id number] THIS REPORT FOR: //name// [facility] ED Test Date: 2018-12-08 Test Time: 14:21:33 Pat Name: SUSANA QUINTERO Department: Room: Gender: M Category Development Analyst: CARISSA : 1985 Requested By: Landry Cervantes Order Number: [id number] MD: Mahendra Rodríguez Measurements Intervals [place] Rate: 88 P: 43 TN: 145 QRS: 39 QRSD: 85 T: 55 QT: 336 QTc: 407 Interpretive Statements Sinus rhythm Normal tracing Compared to ECG 09/25/2015 23:06:07 No significant change was found Electronically Signed On 12-09-2018 9:12:54 CDT by Mahendra Rodríguez [email or web address] ��������������������������������������������� <ELECTRONICALLY SIGNED> ���������������������������������������� By: Mahendra Rodríguez MD, [facility] ��������������������������������������������� 12/09/18 0912 1421 1421 Mahendra Rodríguez MD, FACC /EPI
== END 2018-12-08 17:07 | disposition home or self-care (01) ==
LOC: ER 14:17
PROVIDERS: Emergency Medicine
DX: R07.89 Other chest pain (principal); I10 Essential (primary) hypertension; F32.9 Major depressive disorder, single episode, unspecified; F17.210 Nicotine dependence, cigarettes, uncomplicated; Z88.8 Allergy status to other drugs, medicaments and biological substances; Z98.890 Other specified postprocedural states; Z90.49 Acquired absence of other specified parts of digestive tract

== ENCOUNTER 2019-03-10 13:08 | Emergency (ER) | payer OTHER ==
[~2019-03-10] VITALS: Ht 190.5 cm; Wt 104.3 kg
[~2019-03-10 13:08] MED LIST changes: +TRAMADOL 50 MG50 MG PO
[2019-03-10 13:13] VITALS: BP 130/73
== END 2019-03-10 13:49 | disposition home or self-care (01) ==
LOC: ER 13:08
DX: S61.012A Laceration without foreign body of left thumb without damage to nail, initial encounter (principal); I10 Essential (primary) hypertension; F32.9 Major depressive disorder, single episode, unspecified; Z90.49 Acquired absence of other specified parts of digestive tract; Z90.89 Acquired absence of other organs; Z98.890 Other specified postprocedural states; Z96.0 Presence of urogenital implants; Z88.4 Allergy status to anesthetic agent; Z88.8 Allergy status to other drugs, medicaments and biological substances; W26.8XXA Contact with other sharp object(s), not elsewhere classified, initial encounter; Y93.89 Activity, other specified; Y92.89 Other specified places as the place of occurrence of the external cause; Y99.8 Other external cause status